=== PATIENT | male | born 1970 | race Caucasian/White ===

== ENCOUNTER 2021-09-19 12:23 | Observation (INO) | payer OTHER ==
[~2021-09-19] VITALS: Ht 177.8 cm; Wt 93.0 kg
[~2021-09-19 12:23] MED LIST: CEPHALEXIN500 MG PO; NORCO 5-325 TA1 EACH PO
--- OUTSIDE RECORDS SUMMARY | 2021-09-19 12:28 | XMS ---
PreManage Notification: CHAO KNAPP [employer] Representative Events No recent Security Events currently on file CRITERIA MET - [facility] [place] C[facility] PROVIDERS There are no care providers on record at this time. [facility] has no Care Guidelines for this patient. Sus[facility] VISIT COUNT (12 MO.) 1 FRANCISCO Callahan TOTAL 1 NOTE: Visits indicate total known visits. ED/UCC VISIT TRACKING (12 MO.) 09/19/2021 12:25 FRANCISCO [place] TYPE: Emergency COMPLAINT: - R SIDE LOWER ABD PAIN/FLANK PAIN, VOMITING INPATIENT VISIT TRACKING (12 MO.) No inpatient visits to display in this time frame [id number]
[2021-09-19] MEDS ORDERED: BUPRENORPHINE HC8 MG SL (12:54)
--- NOTE | 2021-09-19 16:36 | NUR ---
PT TO FLOOR WITH RN JIM. PT ABLE TO AMB TO RESTROOM ADN DO [place] AND CHANGE INTO GOWN. PT TOLERATED WELL. ADMISSION DONE. WARM BLANKETS PLACED. BOLUS FROM ED RUNNING. AB STARTED. RATES PAIN 6/10
--- NOTE | 2021-09-19 16:48 | NUR ---
medications reconciled
--- NOTE | 2021-09-19 19:44 | NUR ---
pt ARRIVES BACK FROM SURGERY. VSS. DENIES PAIN. ASSESSMENT COMPLETE. LAP SITES CDI X 3 WITH GAUZE AND PAPER TAPE. BOWEL TONES ACTIVE. pt COLD. AFEBRILE. WARM BLANKETS PROVIDED. CALL LIGHT IN REACH. URINAL AT BEDSIDE PER pt REQUEST. IV SITE FLUSHED WNL. IVF INFUSING ORDERED. BED ALARM ON FOR SAFETY. CPOX ON.
--- NOTE | 2021-09-19 20:11 | NUR ---
09/19/212010 ADALGISA MARINELLI 190-PATIENT ARRIVES TO PACU ON 10L VIA MASK. PATIENT IS NONAROUSABLE TO PAINFUL STIMULI. ORAL AIRWAY IN PLACE. RN PERFORMING JAW THRUST. 1904-PATIENT NONAROUSABLE TO PAINFUL STIMULI. REPOSITIONED HEAD TO THE LEFT AND JAW THRUST STOPPED. RESP EVEN AND UNLABORED. ORAL AIRWAY IN PLACE. VSS. IV FLUIDS INFUSING. O2 SATS IN HIGH 90'S TO 100% ON 10L. 1909-PATIENT NONAROUSABLE TO PAINFUL STIMULI. ORAL AIRWAY IN PLACE. JAW THRUST BY RN. HOB ELEVATED. 1912-PATIENT REACTIVE TO PAINFUL STIMULI. ORAL AIRWAY REMOVED. PATIENT VERY RESTLESS. 1914-PATIENT REPOSTIONS SELF ON LEFT SIDE. DOESN'T FOLLOW SIMPLE COMMANDS. PATIENT RESTLESS. REPEATS "LEAVE ME ALONE". TRIED TO REASSURE PATIENT THAT SURGERY WAS OVER AND IN PACU. PATIENT PUSHES RN HANDS AWAY WHEN TRYING TO FIX PULSE OXIMETER. O2 TITRATED OFF. O2 SATS IN THE HIGH 90'S ON RA. 1917-PATIENT RESTLESS. STILL LAYING ON LEFT SIDE. STATES "LEAVE ME ALONE" WHEN TRYING TO REPOSTION HAND TO FIX PULSE OXIMETER. DENIES PAIN AND NASEA. 1921-PATIENT LAYING QUIETLY ON LEFT SIDE. RESP EVEN AND UNLABORED. O2 SATS IN THE MID TO HIGH 90'S OR RA. DENIES PAIN AND NAUSEA. 1924-PATEINT DROWSY AND LAYING ON LEFT SIDE WITH EYES CLOSED. RESP EVEN AND UNLABORED. PRODUCTION ADMINISTRATOR AT BEDSIDE TALKING TO PATIENT. PRODUCTION ADMINISTRATOR TELLS PATIENT WE ARE GOING BACK TO ROOM ON MED SURG FLOOR. O2 SATES IN THE MID 90'S ON RA, 193-PATEINT TO ROOM 123. REPORT GIVEN TO RONI COBB. BED PLUGGED IN AND BED RAILS UP. VITAL SIGN DONE ON ARRIVAL. PATIENT REPOSITIONED ON BACK AND ICE PACKS PLACED OVER GOWN ON ABDOMEN. WARM BLANKETS PROVIDED. DENIES PAIN AND NAUSEA.
--- NOTE | 2021-09-19 20:54 | NUR ---
POST-OP VITALS TAKEN AND RECORDED. PATIENT DENIES ANY PAIN OR NAUSEA. PATIENTS IV INFUSING PER ORDER. PATIENT DENIES ANY NEEDS. CALL LIGHT AND BELONGINGS ARE WITHIN REACH.
--- NOTE | 2021-09-19 21:57 | NUR ---
pt RESTING IN BED SLEEPING, SNORING. SPO2 WNL ON RA. VSS. IV SITE FLUSHED WNL, IV ANTIBIOTIC INFUSING ORDERED. VSS. CALL LIGHT IN REACH. BED ALARM ON FOR SAFETY.
--- NOTE | 2021-09-19 22:49 | NUR ---
pt SLEEPING, AWAKENS TO VOICE. STATES PAIN "ISN'T TOO BAD" RATES PAIN 4/10. DENIES NEED FOR MEDICATION. URINAL EMPTIED, 475 MLS AND BACK ON BEDSIDE TABLE PER REQUEST. VSS. WATER IN REACH. pt REQUESTING TO SLEEP. DECLINES JELLO OR BROTH OFFERED. CALL LIGHT IN REACH. BED ALARM ON.
--- NOTE | 2021-09-20 00:04 | NUR ---
PATIENT IS RESTING IN BED WITH EYES CLOSED, CPOX READINGS ARE WNL. CALL LIGHT IN REACH. IV INFUSIGN PER ORDER.
--- NOTE | 2021-09-20 03:05 | NUR ---
WATER NO ICE REFILLED. 2 ORANGE JELLO PROVIDED.
--- NOTE | 2021-09-20 03:10 | NUR ---
VITALS TAKEN AND RECORDED. INTAKE AND OUTPUT RECORDED. SCHEDULE ABX INFUSING PER ORDER. PATIENT DENIES ANY PAIN OR NAUSEA. FRESH ICE PACKS FOR ABD PROVIDED. JELL AND FRESH WATER PROVIDED. PATIENT DENIES ANY FURTHER NEEDS. CALL LIGHT IN REACH. SCDS AND CPOX IN USE.
--- NOTE | 2021-09-20 05:53 | CONS ---
[facility] [place] [facility] [address] [place] [address], [place] [address] Signed DATE OF CONSULTATION: 09/19/2021 CHIEF COMPLAINT: Right lower quadrant abdominal pain. 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 He is in very good shape. About three and half days ago, he started developing right lower quadrant abdominal pain. It has gotten worse and is associated with vomiting. He came to emergency room for evaluation. He is tender in the right lower quadrant with elevated white blood cell count. CT scan confirmed his thickened inflamed appendix. I was asked to see him here in the emergency room as the general surgeon on-call. In the meantime, he has received Rocephin and Flagyl. PAST MEDICAL HISTORY: Hemorrhoids. 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 SOCIAL HISTORY: He likes to vape. He smokes marijuana. He does not drink. He is single but has a girlfriend. He has four children. 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 His daughter is José at [phone]. He does not drive. He prefers [facility]. FAMILY HISTORY: Mom had diabetes. REVIEW OF SYSTEMS: He had 10 systems reviewed. He talked about the tumor over his shoulder. ALLERGIES: Penicillin causes anaphylaxis. MEDICATION: Buprenorphine. PHYSICAL EXAMINATION: VITAL SIGNS: His blood pressure is 117/69, heart rate 57, respiratory rate 16, temperature is 98.4, he is 96% on room air. He is 72 kg. GENERAL: Chao is a 51-year-old gentleman, lying supine semi-recumbent in his ER bed, talking on his phone. He is not systemically ill or toxic. Electronically Signed By: GULSHAN HAYES MD 09/20/21 0553 PATIENT NAME: CHAO KNAPP CONSULTATION DATE OF : 72 REPORT #: [id number] PHYSICIAN: GULSHAN HAYES MD PCP: NO PRIMARY CARE PHYSICIAN REPORT IS CONFIDENTIAL AND NOT TO BE RELEASED WITHOUT AUTHORIZATION [facility] [address] [place] [address], [place] [address] Signed LUNGS: Clear to auscultation bilaterally. HEART: Regular rate and rhythm without murmurs. ABDOMEN: Soft, flat, and tender in the right lower quadrant. LABORATORY DATA: White blood count 13, hemoglobin 13. The electrolytes are unremarkable. RADIOGRAPHIC STUDIES: CT scan of the abdomen and pelvis is reviewed along with the report. He clearly has a very thickened inflamed appendix traveling medially off the cecum. He has a few diverticula in the colon. ASSESSMENT/PLAN: Chao is a 51-year-old gentleman who presents with acute appendicitis. We have some cases ahead him, so he is going to be admitted to and continued on IV fluids and pain medicine. We should be able to get to him later this evening. I reviewed with him laparoscopic versus open appendectomy. We reviewed the location and function of the appendix. We discussed the expected intraop and postop course. He does understand the risks including, but not limited to bleeding, infection, scarring, change in contour of skin, damage to bowel, appendiceal stump leak, postoperative intraabdominal abscess, incisional hernias, and other unforeseen comorbidities. He has expressed understanding would like to proceed. Gulshan Hayes MD ALB/MODL /[id number] cc: Gulshan Hayes MD Copies: GULSHAN HAYES MD ~ Electronically Signed By: GULSHAN HAYES MD 09/20/21 0553 PATIENT NAME: CHAO KNAPP CONSULTATION DATE OF : 72 REPORT #: [id number] PHYSICIAN: GULSHAN HAYES MD PCP: NO PRIMARY CARE PHYSICIAN REPORT IS CONFIDENTIAL AND NOT TO BE RELEASED WITHOUT AUTHORIZATION
--- NOTE | 2021-09-20 05:53 | OR ---
[facility] [address] [place], [place] [address] Signed DATE OF OPERATION: 09/19/2021 SURGEON: Gibson Hayes MD PREOPERATIVE DIAGNOSIS: Acute appendicitis. POSTOPERATIVE DIAGNOSIS: Acute ruptured appendicitis. PROCEDURE: Laparoscopic appendectomy. ESTIMATED BLOOD LOSS: None. INDICATIONS: Damon is a 51-year-old gentleman, who came with a 3-1/2 to 4-day history of right lower quadrant abdominal pain and vomiting. He was seen in the ER and found to be tender in the right lower quadrant. White count was elevated. CT scan of abdomen and pelvis confirmed his appendicitis. I had been asked to see him in the emergency room as general surgeon on-call. He did receive Rocephin and Flagyl. He was COVID negative. I reviewed with Damon the location and function of the appendix. We discussed laparoscopic versus open appendectomy. We have reviewed the risks including, but not limited to bleeding, infection, scarring, change in contour of the skin, damage to bowel, appendiceal stump leak, postoperative intraabdominal abscess, incisional hernias, and other unforeseen comorbidities. He had expressed understanding and wished to proceed. PROCEDURE NOTE: Damon was taken into our operating room and placed in the supine position under general endotracheal tube anesthesia. He was already on antibiotics. He was given subcutaneous heparin. SCDs were utilized. A Gonzales catheter was inserted with return of clear yellow urine without difficulty. His abdomen was prepped and draped in usual sterile fashion. All trocars were placed in usual positions under direct visualization of camera without difficulty. We had taken pictures throughout for photodocumentation. It took just a little bit of cautery to free up the side of the cecum and that allowed the appendix and the cecum to come up into the operative field. The base of the appendix was cleared off the cautery and divided from the cecum with linear stapler. We used a vascular load x2 to come across the mesoappendix with excellent hemostasis. We could see that his Electronically Signed By: GIBSON HAYES MD 09/20/21 0553 PATIENT NAME: DAMON KNAPP OPERATIVE REPORT DATE OF : 72 REPORT #: [id number] PHYSICIAN: GIBSON HAYES MD PCP: NO PRIMARY CARE PHYSICIAN REPORT IS CONFIDENTIAL AND NOT TO BE RELEASED WITHOUT AUTHORIZATION [facility] [address] [place], [place] [address] Signed appendix was quite thickened and friable and as soon as we touched his appendix, it ruptured and we suctioned that pus out. The area was irrigated and suctioned out some more. The appendix had been placed into an EndoCatch bag. It was taken out through the right subcostal trocar site. We used our laparoscopic suturing device to pass 0-Vicryl suture x2 on either side of the fascia of this right subcostal trocar site. This was tied down to close this fascia primarily. After this, all the gas was allowed to escape and all the trocars were removed. We closed the fascia of the supraumbilical trocar site with interrupted [id number] and simple 0-Vicryl sutures. Local anesthetic was copiously injected into all 3 trocar sites. Each trocar site was irrigated and suctioned out until clear. The skin and dermis of each trocar site were reapproximated with interrupted 3-0 subcuticular Monocryl sutures. Dry gauze and tape were applied to all three incisions. Gonzales catheter was removed without difficulty. Damon was awakened from his anesthesia, extubated in the OR, and taken to recovery room in stable condition. Gibson Hayes MD [facility] /[id number] cc: Patient Chart Gibson Hayes MD Copies: GIBSON HAYES MD ~ Electronically Signed By: GIBSON HAYES MD 09/20/21 0553 PATIENT NAME: DAMON KNAPP OPERATIVE REPORT DATE OF : 72 REPORT #: [id number] PHYSICIAN: GIBSON HAYES MD PCP: NO PRIMARY CARE PHYSICIAN REPORT IS CONFIDENTIAL AND NOT TO BE RELEASED WITHOUT AUTHORIZATION
--- NOTE | 2021-09-20 06:12 | NUR ---
PATIENTS VITALS TAKEN AND RECORDED. INTAKE AND OUTPUT RECORDED. IV INFUSING PER ORDER. PATIENT RATES PAIN AT A 3/10 AND WOULD LIKE MOTRIN. SPOKE WITH MD ABOUT CHANGING PRN PAIN MEDICATION ORDERS, MD TO PUT IN NEW ORDERS. IV INFUSING PER ORDER. PATIENT UP TO RECLINER. CALL LIGHT IN REACH. PATIENT TOELRATED APPLESUACE AND JELLO. NO NAUSEA NOTED.
--- NOTE | 2021-09-20 07:44 | NUR ---
REPORT RECIEVED FROM NIGHT RN. CARE PLAN REVIEWED - NO CHANGES MADE AT THIS TIME. WILL CONTINUE TO ENCOURAGE ADVANCMENT OF DIET AND AMBULATION.
--- NOTE | 2021-09-20 08:06 | NUR ---
PATIENT UP IN CHAIR AT THIS TIME. RN IN ROOM. CALL LIGHT IN REACH. NO FURTHER NEEDS AT THIS TIME.
--- NOTE | 2021-09-20 08:12 | NUR ---
RN IN ROOM TO ADMINISTER SCHEDULED MEDS. PT UP IN CHAIR. RATES PAIN A 6/10 - DENIES NEEDS FOR PAIN MEDS. DENIES NAUSEA. IV SITE FLUSHES WELL, TOLERATING IV INFUSION WITHOUT DIFFICULTY. BREAKFAST DELIVERED TO PT. CALL LIGHT IN REACH.
--- NOTE | 2021-09-20 09:22 | NUR ---
RN IN ROOM TO ASSESS PT. VS STABLE - ASSESSMENT UNCHANGED FROM PREVIOUS SHIFT. PT RATES PAIN IS 6/10 - STATES THIS IS TOLERABLE FOR HIM. DESCRIBES PAIN IS "MORE GAS LIKE" TODAY - SHARP. DENIES NAUSEA. FINISHED 100% OF BREAKFAST. IV SITE TOLERATING ABX WITHOUT DIFFICULTY. PT REQUESTS A SHOWER AND AMBULATION IN [place] THIS MORNING. SUPPLY CONTROLLER NOTIFIED - ASKED TO HELP. CALL LIGHT IN REACH.
--- NOTE | 2021-09-20 10:39 | NUR ---
Medications administered, IV ABX infusing, pt resting in chair after shower and states no needs. Ice pack applied to incisions. Made plan to walk in hallway. Call light in reach.
--- NOTE | 2021-09-20 11:43 | NUR ---
PT UP AMBULATING IN HALLWAY INDEPENDENTLY - STEADY ON FEET.
--- NOTE | 2021-09-20 11:50 | NUR ---
Spoke with pt and he states he lives in an apartment with his SO. He does not have steps and does not need any DME. SO will assist with hous ehold chores and shopping. Pt has been walking laps and doing well. Pt does not have a p[facility] but [facility] there.
--- NOTE | 2021-09-20 12:15 | NUR ---
Called the [facility] and scheduled appt with Dr. Riddle to establish care with this pt on 09/28/21 at 0800.
--- NOTE | 2021-09-20 12:37 | EKG ---
[facility] [address] [place] [address] Signed Sinus bradycardia with sinus arrhythmia Otherwise normal ECG No previous ECGs available Confirmed by EL SAUCEDA MD ([id number]) on 09/20/2021 12:37:16 PM Electronically Signed By: EL SAUCEDA MD 09/20/21 1237 PATIENT NAME: CHAO KNAPP Electrocardiogram DATE OF : 72 PHYSICIAN: EL SAUCEDA MD REPORT #: [id number] REPORT IS CONFIDENTIAL AND NOT TO BE RELEASED WITHOUT AUTHORIZATION
--- NOTE | 2021-09-20 13:02 | NUR ---
PT ALERT, ORIENTED AND SITTING IN CHAIR. PT ADMITTED HE IS FEELING MUCH BETTER TODAY. GOT LITTLE SLEEP, HOPES TO DC LATER TODAY. GAVE ENCOURAGE- MENT, BLESSING AND G.POST. WILL FOLLOW NEEDED
--- NOTE | 2021-09-20 13:20 | NUR ---
PT AMBULATING IN HALLWAY INDEPENDENTLY - TOLERATED LUNCH WITH NO NAUSEA.
--- NOTE | 2021-09-20 13:54 | NUR ---
PT UP IN CHAIR WATCHING TV. RATES PAIN 6/10 AND REQUESTS PRN PAIN MED. SCHEDULED TYLENOL DUE SOON WHEN ABX DONE INFUSING. PT DENIES NAUSEA, TOLERATING SOFT DIET. VOIDING QS WITHOUT PAIN OR HESITATION. PT AMBULATING IN HALLWAY MULTIPLE TIMES TODAY WITHOUT DIFFICULTY. PT HOPEFUL TO BE DC SOON.
[2021-09-20] MEDS ORDERED: LEVOFLOXACIN500 MG PO (14:23)
[2021-09-20] MEDS ORDERED: METRONIDAZOLE500 MG PO (14:25)
[2021-09-20] MEDS ORDERED: TYLENOL325 MG PO (14:26)
--- NOTE | 2021-09-22 14:04 | PATH ---
[facility] [address] [place], [place] [address] Signed SPECIMEN(S): A APPENDIX SPECIMEN SOURCE: A. APPENDIX CLINICAL HISTORY: Acute appendicitis. FINAL PATHOLOGIC DIAGNOSIS: Appendix, appendectomy: - Acute appendicitis. NAL:mfr:C2NR MICROSCOPIC EXAMINATION: Histologic sections of all submitted blocks are examined by light microscopy. These findings, together with the gross examination, support the pathologic diagnosis. GROSS DESCRIPTION: The specimen, labeled "TK, appendix," is received in formalin and consists of Specimen: Appendix with mesoappendix. Dimensions: 5.7 x 0.8 cm. Serosa: [place]-red and congested. Defect: Not grossly identified. Inking: Staple line is inked black. Mucosa: Dark red. Fecalith: Not grossly identified. Additional: None. Software Sales Representative sections are submitted in cassette (A1). JS (under the direct supervision of a pathologist) The Gross Description was prepared using a voice recognition system. The report was reviewed for accuracy; however, sound-alike word errors, addition and/or deletions may occur. If there is any question about this report, please contact Client Services. PERFORMING LABORATORY: The technical component was performed by [facility], [address] [place] [id number] (Funeral Prearrangement Counselor: Vannesa Baxter MD; CLIA# [id number]). [facility] [address] [address] (CLIA# [id number]). PATIENT NAME: CHAO KNAPP PATHOLOGY DATE OF : 72 REPORT #: [id number] PHYSICIAN: DEE PATHOLOGY PCP: NO PRIMARY CARE PHYSICIAN REPORT IS CONFIDENTIAL AND NOT TO BE RELEASED WITHOUT AUTHORIZATION [address] [place] [address] Signed Diagnostician: Sandy Oliveros MD Pathologist Electronically Signed 09/22/2021 Copies: ~ PATIENT NAME: CHAO KNAPP PATHOLOGY DATE OF : 72 REPORT #: [id number] PHYSICIAN: DEE PATHOLOGY PCP: NO PRIMARY CARE PHYSICIAN REPORT IS CONFIDENTIAL AND NOT TO BE RELEASED WITHOUT AUTHORIZATION
== END 2021-09-20 15:40 | disposition home or self-care (01) ==
LOC: ED 12:23 → MS 12:26
PROVIDERS: ADMIT Colon & Rectal Surgery; ATTEND Colon & Rectal Surgery
PROC: 0DTJ4ZZ Resection of Appendix, Percutaneous Endoscopic Approach (ICD-10-PCS; principal; 2021-09-19 16:30)
DX: K35.80 Unspecified acute appendicitis (principal); F17.290 Nicotine dependence, other tobacco product, uncomplicated; R00.1 Bradycardia, unspecified; Z20.822 Contact with and (suspected) exposure to COVID-19
CPT/HCPCS: 36415; 74177; 80048; 81001; 85025; 93005; 93010; 96372; 96374; 96375; 96376; 99285-25; A9270; C9113; G0378; J0131; J0330; J0692; J0696; J1100; J1644; J1650; J1885; J2250; J2405; J2704; J2765; J3010; J7030; J7121; Q9967; U0003